=== PATIENT | male | born 1995 | race Hispanic/Latino ===

== ENCOUNTER 2018-04-15 14:33 | Inpatient (IN) | payer OTHER ==
[~2018-04-15] VITALS: Ht 175.3 cm; Wt 133.4 kg
[2018-04-15] MEDS ORDERED: MORPHINE SULFATE INJ 4 MG/ML INJ IV STA (14:58)
[2018-04-15] MEDS ORDERED: SODIUM CHLORIDE 0.9% 1000ML 1,000 ML IV STA ×2 (14:58→18:29)
[2018-04-15] MEDS ORDERED: ONDANSETRON HCL INJ 2 MG/ML VIAL IV STA (14:58)
[2018-04-15] MEDS ORDERED: LIDOCAINE 1% W/EPINEPHRINE 20 ML VIAL INJ ONE (15:00)
[2018-04-15 15:23] LABS: BASOPHILS % 0.3 % (0.0-1.0); EOSINOPHILS # (AUTO) 0.2 (0.0-0.4); EOSINOPHILS % 1.5 % (0.0-6.0); HEMATOCRIT 47.5 % (38.2-49.6); HEMOGLOBIN 17.4 g/dL (14.0-18.0); LYMPHOCYTES # (AUTO) 1.7 (1.0-3.2); LYMPHOCYTES % 10.6 % (18.0-39.1); MEAN CORPUSCULAR HEMOGLOBIN 34.5 pg (28-32); MEAN CORPUSCULAR HGB CONC 36.6 g/dL (31-35); MEAN CORPUSCULAR VOLUME 94.1 fL (81-99); MONOCYTES # (AUTO) 0.8 (0.2-0.8); MONOCYTES % 5.2 % (4.4-11.3); NEUTROPHILS # (AUTO) 12.9 (2.1-6.9); NEUTROPHILS % 82.1 % (38.7-80.0); PLATELET COUNT 184 x10e3/uL (140-360); RED BLOOD COUNT 5.05 x10e6/uL (4.3-5.7); RED CELL DISTRIBUTION WIDTH 11.5 % (11.7-14.4)
[2018-04-15 15:44] LABS: ALANINE AMINOTRANSFERASE 171 IU/L (0-55); ALBUMIN 4.3 g/dL (3.5-5.0); ALBUMIN/GLOBULIN RATIO 1.5 (0.8-2.0); ALKALINE PHOSPHATASE 76 IU/L (40-150); ANION GAP 11.8 mmol/L (8-16); BLOOD UREA NITROGEN 9 mg/dL (7-26); BUN/CREATININE RATIO 10 (6-25); CALCIUM 9.6 mg/dL (8.4-10.2); CARBON DIOXIDE 27 mmol/L (22-29); CHLORIDE 102 mmol/L (98-107); CREATININE, SERUM 0.87 mg/dL (0.72-1.25); EST GLOMERULAR FILTRATION RATE > 60 ML/MIN (60-); GLUCOSE 125 mg/dL (74-118); POTASSIUM 3.8 mmol/L (3.5-5.1); SODIUM 137 mmol/L (136-145)
[2018-04-15] MEDS: PIPER-TAZ 3.375 GM 50 ML IV SCH (16:04)
[2018-04-15] MEDS: VANCOMYCIN 1GM/NS 250 ML 250 ML IV SCH (16:51)
[2018-04-15] MEDS ORDERED: ONDANSETRON HCL INJ 2 MG/ML VIAL IV PRN (17:15)
--- NOTE | 2018-04-15 18:19 | Diagnostic Imaging Report ---
CT scan of the LEFT FEMUR, WITH AND WITHOUT injected contrast. TECHNIQUE: Standard departmental protocols were used. A left lower extremity was imaged from just superior to the left hip joint, through the proximal tibia and fibula. Post-contrast images were obtained after the intravenous injection of 100 cc or Isovue-370. Sagittal and coronal reformatted images were obtained. HISTORY: Cellulitis. Rule out abscess. COMPARISON: None. FINDINGS: There is no acute fracture or dislocation. There is subcutaneous fat stranding in the proximal medial thigh with skin thickening, consistent with encephalitis. There is a small complex high attenuation collection with punctate foci of gas proximal to mid medial I measuring 1.5 x 1.3 cm on axial image 159 series 3 and coronal reconstruction image 49 with mild disruption of the overlying skin, which may be related to prior instrumentation. Mildly enlarged enhancing left inguinal lymph nodes suggestive of reactive lymphadenopathy. IMPRESSION: Findings consistent with proximal to mid posteromedial thigh cellulitis with a small gas containing fluid collection possibly representing a small abscess or related to attempted aspiration in the proper clinical setting. Signed by: Dr. Khang Green M.D. on 04/15/2018 6:16 PM
[2018-04-15] MEDS: SODIUM CHLORIDE 0.9% 1000ML 1,000 ML IV SCH (18:27)
[2018-04-15] MEDS ORDERED: IBUPROFEN 600 MG TAB PO STA (18:29)
[2018-04-15] MEDS ORDERED: IBUPROFEN 600 MG TAB ONE (18:34)
[2018-04-15 19:45] VITALS: BP 132/82
[2018-04-15] MEDS ORDERED: IOPAMIDOL 370 MG/ML 200 ML INFUS..BTL INJ ONE (20:18)
[2018-04-15] MEDS ORDERED: SODIUM CHLORIDE 0.9% 50ML 50 ML ONE (20:18)
[2018-04-15 21:00] VITALS: BP 132/82
[2018-04-15 23:40] VITALS: BP 132/82
[2018-04-16] VITALS (7 sets, daily range): BP systolic 111–130; BP diastolic 56–67
[2018-04-16] MEDS: VANCOMYCIN 1GM/NS 250 ML 250 ML IV SCH ×2 (02:24→15:00)
[2018-04-16] MEDS: PIPER-TAZ 3.375 GM 50 ML IV SCH ×4 (05:18→17:29)
[2018-04-16] MEDS: SODIUM CHLORIDE 0.9% 1000ML 1,000 ML IV SCH ×3 (05:18→23:02)
[2018-04-16] MEDS: MORPHINE SULFATE INJ 4 MG/ML INJ IV PRN (05:30)
[2018-04-16 05:37] LABS: BASOPHILS % 0.3 % (0.0-1.0); EOSINOPHILS # (AUTO) 0.4 (0.0-0.4); EOSINOPHILS % 2.6 % (0.0-6.0); HEMATOCRIT 42.1 % (38.2-49.6); MEAN CORPUSCULAR HEMOGLOBIN 34.4 pg (28-32); MEAN CORPUSCULAR HGB CONC 35.6 g/dL (31-35); MEAN CORPUSCULAR VOLUME 96.6 fL (81-99); MONOCYTES % 7.4 % (4.4-11.3); NEUTROPHILS # (AUTO) 9.8 (2.1-6.9); NEUTROPHILS % 74.2 % (38.7-80.0); PLATELET COUNT 154 x10e3/uL (140-360); RED BLOOD COUNT 4.36 x10e6/uL (4.3-5.7); RED CELL DISTRIBUTION WIDTH 11.8 % (11.7-14.4)
[2018-04-16 06:17] LABS: ALANINE AMINOTRANSFERASE 113 IU/L (0-55); ALBUMIN 3.5 g/dL (3.5-5.0); ALBUMIN/GLOBULIN RATIO 1.5 (0.8-2.0); ALKALINE PHOSPHATASE 60 IU/L (40-150); ANION GAP 10.7 mmol/L (8-16); BLOOD UREA NITROGEN 11 mg/dL (7-26); BUN/CREATININE RATIO 13 (6-25); CALCIUM 8.8 mg/dL (8.4-10.2); CARBON DIOXIDE 26 mmol/L (22-29); CHLORIDE 106 mmol/L (98-107); CREATININE, SERUM 0.82 mg/dL (0.72-1.25); EST GLOMERULAR FILTRATION RATE > 60 ML/MIN (60-); GLUCOSE 86 mg/dL (74-118); POTASSIUM 3.7 mmol/L (3.5-5.1); SODIUM 139 mmol/L (136-145)
[2018-04-16] MEDS ORDERED: HYDRALAZINE HCL 20 MG/ML VIAL IV PRN (10:15)
[2018-04-17] VITALS (8 sets, daily range): BP systolic 113–135; BP diastolic 53–83
[2018-04-17] MEDS: PIPER-TAZ 3.375 GM 50 ML IV SCH ×4 (00:30→17:46)
[2018-04-17] MEDS: VANCOMYCIN 1GM/NS 250 ML 250 ML IV SCH (03:21)
[2018-04-17 05:23] LABS: BASOPHILS % 0.2 % (0.0-1.0); EOSINOPHILS # (AUTO) 0.4 (0.0-0.4); EOSINOPHILS % 3.3 % (0.0-6.0); HEMATOCRIT 42.2 % (38.2-49.6); HEMOGLOBIN 15.1 g/dL (14.0-18.0); LYMPHOCYTES # (AUTO) 1.9 (1.0-3.2); LYMPHOCYTES % 18.1 % (18.0-39.1); MEAN CORPUSCULAR HEMOGLOBIN 34.3 pg (28-32); MEAN CORPUSCULAR HGB CONC 35.8 g/dL (31-35); MEAN CORPUSCULAR VOLUME 95.9 fL (81-99); MONOCYTES % 9.9 % (4.4-11.3); NEUTROPHILS # (AUTO) 7.2 (2.1-6.9); NEUTROPHILS % 68.2 % (38.7-80.0); PLATELET COUNT 155 x10e3/uL (140-360); RED CELL DISTRIBUTION WIDTH 11.4 % (11.7-14.4)
[2018-04-17 05:41] LABS: ANION GAP 10.2 mmol/L (8-16); BLOOD UREA NITROGEN 10 mg/dL (7-26); BUN/CREATININE RATIO 13 (6-25); CALCIUM 8.9 mg/dL (8.4-10.2); CARBON DIOXIDE 24 mmol/L (22-29); CHLORIDE 104 mmol/L (98-107); CREATININE, SERUM 0.77 mg/dL (0.72-1.25); EST GLOMERULAR FILTRATION RATE > 60 ML/MIN (60-); GLUCOSE 78 mg/dL (74-118); MAGNESIUM 2.2 MG/DL (1.3-2.1); POTASSIUM 3.2 mmol/L (3.5-5.1); SODIUM 135 mmol/L (136-145)
[2018-04-17] MEDS: MORPHINE SULFATE INJ 4 MG/ML INJ IV PRN (06:48)
[2018-04-17] MEDS: SODIUM CHLORIDE 0.9% 1000ML 1,000 ML IV SCH ×3 (07:20→19:02)
[2018-04-17] MEDS ORDERED: POTASSIUM CHLORIDE 20 MEQ TAB CR PO STA (10:27)
[2018-04-18] VITALS (8 sets, daily range): BP systolic 119–134; BP diastolic 56–80
[2018-04-18 04:47] LABS: BASOPHILS % 0.4 % (0.0-1.0); EOSINOPHILS # (AUTO) 0.5 (0.0-0.4); EOSINOPHILS % 6.1 % (0.0-6.0); HEMATOCRIT 41.4 % (38.2-49.6); HEMOGLOBIN 14.9 g/dL (14.0-18.0); LYMPHOCYTES # (AUTO) 1.8 (1.0-3.2); LYMPHOCYTES % 21.7 % (18.0-39.1); MEAN CORPUSCULAR HEMOGLOBIN 34.7 pg (28-32); MEAN CORPUSCULAR VOLUME 96.5 fL (81-99); MONOCYTES # (AUTO) 0.9 (0.2-0.8); MONOCYTES % 10.7 % (4.4-11.3); NEUTROPHILS # (AUTO) 5.1 (2.1-6.9); NEUTROPHILS % 60.5 % (38.7-80.0); PLATELET COUNT 160 x10e3/uL (140-360); RED BLOOD COUNT 4.29 x10e6/uL (4.3-5.7); RED CELL DISTRIBUTION WIDTH 11.5 % (11.7-14.4)
[2018-04-18 05:07] LABS: ANION GAP 10.9 mmol/L (8-16); BLOOD UREA NITROGEN 9 mg/dL (7-26); BUN/CREATININE RATIO 11 (6-25); CALCIUM 8.9 mg/dL (8.4-10.2); CARBON DIOXIDE 26 mmol/L (22-29); CHLORIDE 106 mmol/L (98-107); CREATININE, SERUM 0.81 mg/dL (0.72-1.25); EST GLOMERULAR FILTRATION RATE > 60 ML/MIN (60-); GLUCOSE 107 mg/dL (74-118); MAGNESIUM 2.3 MG/DL (1.3-2.1); SODIUM 139 mmol/L (136-145)
[2018-04-18 05:09] LABS: POTASSIUM 3.9 mmol/L (3.5-5.1)
[2018-04-18] MEDS: SODIUM CHLORIDE 0.9% 1000ML 1,000 ML IV SCH ×2 (05:44→17:21)
[2018-04-18] MEDS: PIPER-TAZ 3.375 GM 50 ML IV SCH ×4 (06:04→17:21)
[2018-04-18] MEDS: ACETAMINOPHEN 325 MG TAB PO PRN (09:45)
[2018-04-18] MEDS ORDERED: BACTRIM DS TAB1 EACH PO (13:44)
[2018-04-18] MEDS ORDERED: TYLENOL # 31 EA PO (13:44)
--- NOTE | 2018-04-18 15:21 | Diagnostic Imaging Report ---
Exam: Ultrasound extremity Limited nonvascular History: Abscess of left thigh. Findings: Transverse and sagittal ultrasonographic images were obtained of the left thigh with imaging of the right thigh for comparison. Grayscale and color Doppler imaging was performed. There is an ill-defined hypoechoic area at the wound site in the inner left thigh just deep to the skin surface worrisome for a phlegmon/developing abscess. Impression: Ill-defined hypoechoic area at the wound site in the inner left thigh just deep to the skin surface worrisome for a phlegmon/developing abscess. Signed by: Dr. Justin Turcios M.D. on 04/18/2018 3:17 PM
[2018-04-19] VITALS (7 sets, daily range): BP systolic 128–141; BP diastolic 73–84
[2018-04-19] MEDS: PIPER-TAZ 3.375 GM 50 ML IV SCH ×4 (00:08→19:17)
[2018-04-19] MEDS: SODIUM CHLORIDE 0.9% 1000ML 1,000 ML IV SCH ×3 (04:21→20:19)
--- NOTE | 2018-04-19 21:46 | Consultation ---
DATE OF CONSULTATION: April 19, 2018 REFERRING PHYSICIAN: Dr. Tuttle. HISTORY OF PRESENT ILLNESS: Patient is a 22-year-old male who had an abscess on his left thigh. He went to emergency room, had incision and drainage in the emergency room. He has had persistent swelling, however, but the patient says that the swelling is less and the redness is getting less. Ultrasound was done which revealed some complex lesion in the area of abscess that suggests a possible new abscess developing. Patient has not had any fever. PAST MEDICAL HISTORY: Unremarkable. There is no chronic medical problems. Only previous surgery was right knee surgery. CURRENT MEDICATIONS: No current medications. ALLERGIES: NO KNOWN ALLERGIES. FAMILY HISTORY: Noncontributory. SOCIAL HISTORY: The patient does not smoke cigarettes. Occasionally drinks alcohol. REVIEW OF SYSTEMS: Negative except for as above. PHYSICAL EXAMINATION VITALS: Normal. GENERAL: The patient is awake and alert. HEENT: Unremarkable. Sclerae is nonicteric. NECK: Supple. No masses. LUNGS: Equal breath sounds. They are clear bilaterally. CARDIAC: Regular rate and rhythm. ABDOMEN: Soft without tenderness. EXTREMITIES: In the left medial thigh, there is area of erythema with some mild induration. There is an open wound with serous drainage. There is no purulence seen. Peripheral pulses are palpable. ASSESSMENT: A 22-year-old male now with residual cellulitis in the left thigh. He had incision and drainage done, which was minimal, but patient had a large amount of purulent fluid drained. I do not think there is any residual abscess at this time. No further surgery is needed at this time. Patient may probably needs to continue with IV antibiotics at least for one more day. Thank you for asking me to see Mr. Louis. Job#: [id number] VAS
[2018-04-20] VITALS: BP 128/80
[2018-04-20] MEDS: PIPER-TAZ 3.375 GM 50 ML IV SCH ×2 (00:09→05:00)
[2018-04-20 04:00] VITALS: BP 133/83
[2018-04-20 05:33] LABS: BASOPHILS % 0.5 % (0.0-1.0); EOSINOPHILS # (AUTO) 0.5 (0.0-0.4); EOSINOPHILS % 5.8 % (0.0-6.0); HEMATOCRIT 44.7 % (38.2-49.6); HEMOGLOBIN 15.8 g/dL (14.0-18.0); LYMPHOCYTES # (AUTO) 1.9 (1.0-3.2); MEAN CORPUSCULAR HEMOGLOBIN 34.1 pg (28-32); MEAN CORPUSCULAR HGB CONC 35.3 g/dL (31-35); MEAN CORPUSCULAR VOLUME 96.3 fL (81-99); MONOCYTES # (AUTO) 0.8 (0.2-0.8); MONOCYTES % 10.1 % (4.4-11.3); NEUTROPHILS # (AUTO) 4.7 (2.1-6.9); NEUTROPHILS % 58.7 % (38.7-80.0); PLATELET COUNT 186 x10e3/uL (140-360); RED BLOOD COUNT 4.64 x10e6/uL (4.3-5.7); RED CELL DISTRIBUTION WIDTH 11.6 % (11.7-14.4)
[2018-04-20 05:57] LABS: ANION GAP 11.1 mmol/L (8-16); BLOOD UREA NITROGEN 11 mg/dL (7-26); BUN/CREATININE RATIO 14 (6-25); CALCIUM 9.3 mg/dL (8.4-10.2); CARBON DIOXIDE 28 mmol/L (22-29); CHLORIDE 107 mmol/L (98-107); CREATININE, SERUM 0.81 mg/dL (0.72-1.25); EST GLOMERULAR FILTRATION RATE > 60 ML/MIN (60-); GLUCOSE 85 mg/dL (74-118); MAGNESIUM 2.2 MG/DL (1.3-2.1); POTASSIUM 4.1 mmol/L (3.5-5.1); SODIUM 142 mmol/L (136-145)
[2018-04-20] MEDS: SODIUM CHLORIDE 0.9% 1000ML 1,000 ML IV SCH (07:02)
[2018-04-20 08:00] VITALS: BP 135/88
[2018-04-20] MEDS: CIPROFLOXACIN 400 MG/D5W 200ML 200 ML IV SCH ×2 (10:30→23:03)
[2018-04-20 12:00] VITALS: BP 141/81
[2018-04-20 16:00] VITALS: BP 119/85
[2018-04-20 20:21] VITALS: BP 122/70
[2018-04-20] MEDS: ACETAMINOPHEN 325 MG TAB PO PRN (23:13)
[2018-04-21] VITALS: BP 122/70
[2018-04-21 00:38] VITALS: BP 144/66
[2018-04-21 04:00] VITALS: BP 116/64
[2018-04-21 04:10] LABS: BASOPHILS # (AUTO) 0.1 (0.0-0.1); BASOPHILS % 0.6 % (0.0-1.0); EOSINOPHILS # (AUTO) 0.5 (0.0-0.4); EOSINOPHILS % 5.7 % (0.0-6.0); HEMATOCRIT 45.5 % (38.2-49.6); HEMOGLOBIN 16.7 g/dL (14.0-18.0); LYMPHOCYTES # (AUTO) 2.6 (1.0-3.2); LYMPHOCYTES % 27.3 % (18.0-39.1); MEAN CORPUSCULAR HEMOGLOBIN 34.4 pg (28-32); MEAN CORPUSCULAR HGB CONC 36.7 g/dL (31-35); MEAN CORPUSCULAR VOLUME 93.6 fL (81-99); MONOCYTES # (AUTO) 1.2 (0.2-0.8); NEUTROPHILS # (AUTO) 4.9 (2.1-6.9); NEUTROPHILS % 52.3 % (38.7-80.0); PLATELET COUNT 193 x10e3/uL (140-360); RED BLOOD COUNT 4.86 x10e6/uL (4.3-5.7); RED CELL DISTRIBUTION WIDTH 11.4 % (11.7-14.4)
[2018-04-21 04:34] LABS: ANION GAP 12.5 mmol/L (8-16); BLOOD UREA NITROGEN 11 mg/dL (7-26); BUN/CREATININE RATIO 15 (6-25); CALCIUM 9.4 mg/dL (8.4-10.2); CARBON DIOXIDE 24 mmol/L (22-29); CHLORIDE 104 mmol/L (98-107); CREATININE, SERUM 0.73 mg/dL (0.72-1.25); EST GLOMERULAR FILTRATION RATE > 60 ML/MIN (60-); GLUCOSE 94 mg/dL (74-118); MAGNESIUM 2.4 MG/DL (1.3-2.1); POTASSIUM 3.5 mmol/L (3.5-5.1); SODIUM 137 mmol/L (136-145)
[2018-04-21 08:00] VITALS: BP 120/73
[2018-04-21] MEDS: CIPROFLOXACIN 400 MG/D5W 200ML 200 ML IV SCH (10:18)
--- NOTE | 2018-04-21 14:07 | Discharge Summary ---
ADMISSION DIAGNOSES 1. Left lower extremity cellulitis and abscess with sepsis. 2. Tachycardia. 3. Morbid obesity. DISCHARGE DIAGNOSES 1. Left lower extremity cellulitis and abscess with sepsis. 2. Tachycardia. 3. Morbid obesity. 4. Hypokalemia. 5. Hyponatremia. 6. Hypermagnesemia. HISTORY: Patient denies medical history. SURGICAL HISTORY: Patient had a right knee ACL/meniscus repair. FAMILY HISTORY: Patient says his grandmother had cancer. SOCIAL HISTORY: Patient denies tobacco and illicit drug use. He admits to occasional alcohol use. HOSPITAL COURSE: A 22-year-old male complains of left medial thigh pain that began Saturday. He noticed some redness and a wound beginning to form on Saturday. He denies fever. Yesterday he went to his primary care, who advised him to go to the ER. In the outpatient ER, they drained the abscess. Per the patient's report, they got purulent and sanguineous drainage. Patient was started on vancomycin and Zosyn upon admission with a urine culture drawn. Wound culture came back positive for staph, and blood cultures were negative. Patient's antibiotics were changed to Cipro. Patient had a repeat ultrasound that showed possible abscess. Surgery was consulted. Per Surgery, patient does not require another I&D, just another couple days of IV antibiotics. Patient will discharge home today with 10 more days of p.o. antibiotics. Patient understands discharge instructions and agrees to plan. He will follow up with primary care in 1 to 2 weeks. Vital signs stable, patient afebrile. Dictated by: Shelby Chong NP LUPE MULLEN MD Job#: [id number] EV
== END 2018-04-21 10:42 | disposition home or self-care (01) | DRG 872 ==
LOC: ER 14:33 → ERHOLD 17:05 → MED/SURG2 19:17
PROVIDERS: ADMIT Internal Medicine; ATTEND Internal Medicine
PROC: 0H9JXZZ Drainage of Left Upper Leg Skin, External Approach (ICD-10-PCS; principal; 2018-04-15)
DX: A41.9 Sepsis, unspecified organism (principal); L03.116 Cellulitis of left lower limb; L02.416 Cutaneous abscess of left lower limb; Z68.41 Body mass index [BMI] 40.0-44.9, adult; E87.1 Hypo-osmolality and hyponatremia; E66.01 Morbid (severe) obesity due to excess calories; E87.6 Hypokalemia; E83.41 Hypermagnesemia; Z80.9 Family history of malignant neoplasm, unspecified; B95.61 Methicillin susceptible Staphylococcus aureus infection as the cause of diseases classified elsewhere
CPT/HCPCS: 36415; 76882; 80048; 80053; 83605; 83735; 85025; 87040; 87071; 87186; 87205; 93005; 99284; J2270; J2405; J2543; J3370; J7030; Q9967

== ENCOUNTER 2019-02-19 15:56 | Emergency (ER) | payer OTHER ==
[~2019-02-19] VITALS: Ht 175.3 cm; Wt 133.4 kg
[~2019-02-19 15:56] MED LIST: BACTRIM DS TAB1 EACH PO; TYLENOL # 31 EA PO
--- OUTSIDE RECORDS SUMMARY | 2019-02-19 15:59 | XMS REPORT ---
Author Author [facility] Address Unknown Phone Unavailable Care Team Providers Care Guest Service Agent Name Role Phone LUPE MULLEN Unavailable Unavailable Problems This patient has no known problems. Allergies, Adverse Reactions, Alerts This patient has no known allergies or adverse reactions. Medications This patient has no known medications. Results Test Description Test Time Test Comments Text Results Atomic Results Result Comments US EXTREMITY SLAUGHTER NON-VAS 2018-04-18 15:15:00 [place] [address] Patient Name: THOMAS GONSALEZ MR #: [id number] : 1995 Age/Sex: 22/M Req #: [id number] Adm Physician: LUPE MULLEN MD Ordered by: Shelby Earl FIELD SOFTWARE ENGINEER Report #: [id number] Location: MED/SURG2 Room/Bed: [facility] Procedure: [id number] US/US EXTREMITY SLAUGHTER NON-VAS Exam Date: Exam Time: REPORT STATUS: Signed Exam: Ultrasound extremity Limited nonvascular His tory: Abscess of left thigh. Findings: Transverse and sagittal ultrasonographic images were obtained of the left thigh with imaging of the right thigh for comparison. Grayscale and color Doppler imaging was performed. There is an ill-defined hypoechoic area at the wound site in the inner left thigh just deep to the skin surface worrisome for a phlegmon/developing abscess. Impression: Ill-defined hypoechoic area at the wound site in the inner left thigh just deep to the skin surface worrisome for a phlegmon/developing abscess. Signed by: Dr. Justin Turcios M.D. on 04/18/2018 3:17 PM Dictated By: JUSTIN TURCIOS MD, MD 16 Transcribed By: LINDA on 04/18/181516 COPY TO: SHELBY EARL FIELD SOFTWARE ENGINEER CT FEMUR LEFT W 2018-04-15 18:07:00 [place] [address] Patient Name: THOMAS GONSALEZ MR #: [id number] : 1995 Age/Sex: 22/M Req #: [id number] Adm Physician: LUPE MULLEN MD Ordered by: YURIY BLAIR FIELD SOFTWARE ENGINEER Report #: [id number] Location: [facility] Room/Bed: [place] [address] Procedure: [id number] CT/CT FEMUR LEFT W Exam Date: 04/15/18 Exam Time: 1730 REPORT STATUS: Signed CT scan of the LEFT FEMUR, WITH AND WITHOUT injected c ontrast. TECHNIQUE: Standard departmental protocols were used. A left lower extremity was imaged from just superior to the left hip joint, through the proximal tibia and fibula. Post-contrast images were obtained after the intravenous injection of 100 cc or Isovue-370. Sagittal and coronal reformatted images were obtained. HISTORY: Cellulitis. Rule out abscess. COMPARISON: None. FINDINGS: There is no acute fracture or dislocation. There is subcutaneous fat stranding in the proximal medial thigh with skin thickening, consistent with encephalitis. There is a small complex high attenuation collection with punctate foci of gas proximal to mid medial I measuring 1.5 x 1.3 cm on axial image 159 series 3 and coronal reconstruction image 49 with mild disruption of the overlying skin, which may be related to prior instrumentation. Mildly enlarged enhancing left inguinal lymph nodes suggestive of reactive lymphadenopathy. IMPRESSION: Findings consistent with proximal to mid posteromedial thigh cellulitis with a small gas containing fluid collection possibly representing a small abscess or related to attempted aspiration in the proper clinical setting. Signed by: Dr. Khang Whittaker M.D. on 04/15/2018 6:16 PM Dictated By: EUSEBIO WHITTAKER MD, MD 15 Transcribed By: LINDA on 04/15/181815 COPY TO: YURIY BLAIR NP
[2019-02-19] MEDS ORDERED: DOXYCYCLINE HYCLATE TABLET 100 MG TAB ONE (16:26)
[2019-02-19] MEDS ORDERED: TRIMETHOPRIM/SULFAMETHOXAZOLE 160-800 MG TAB ONE (16:26)
[2019-02-19 16:30] VITALS: BP 145/72
[2019-02-19] MEDS ORDERED: TRIMETHOPRIM/SULFAMETHOXAZOLE 160-800 MG TAB PO ONE (16:30)
[2019-02-20] MEDS ORDERED: DOXYCYCLINE HYCLATE TABLET 100 MG TAB PO SCH (09:00)
== END 2019-02-19 16:29 | disposition home or self-care (01) ==
LOC: ER 15:56
DX: L03.116 Cellulitis of left lower limb (principal)
CPT/HCPCS: 99283